=== PATIENT | male | born 1950 | race Caucasian/White ===

== ENCOUNTER 2016-04-08 07:27 | Day surgery (SDC) | payer OTHER ==
--- NOTE | 2016-03-26 12:54 | HP ---
Chief Complaint - Chief Complaint Date of Service: 03/26/16 Chief Complaint: here for colonoscopy History of Present Illness: 65 yo male who had a colon cancer found and resected in spring. Stage IIIA with one positve LN. No post op chemo. Here for follow up colonoscopy. Recently saw his oncologist. No signs or symptoms of recurrence. Oncologist's note reviewed. Labs OK including LFTs and CEA. No blood in stools or abdominal complaints. - Patient's Past Medical History Patient History - Medical: No pertinent hx, Other Patient History - Cardiac/Respiratory: No pertinent hx Patient History - Cancer: Colon - 2014 right hemicolectomy Patient History - Surgical Procedures: Cancer Surgery - right hemicolectomy 2014, Colonoscopy, Vasectomy Patient History - Other: None - Family History Family History:: no untoward family reactions to anesthesia, no familial bleeding tendencies, no family history of clotting disorders - Family History Mother Family History - Medical: - 2014 Family History - Cardiac/Respiratory: Other - after multiple problems after hip fracture Family History - Cancer: Colon - probable Father Family History - Cardiac/Respiratory: CVA/Stroke Family History - Cancer: Prostate - Social History Living Situations: spouse Abuse History: No History of abuse Psych History: No pertinent hx Does anyone smoke in the home?: No Alcohol Use: none Drug Use: none - Immunizations Immunizations Up to Date: No - unknown tetanus Hx Pneumococcal Vaccination: No History of Influenza Vaccine: No Review Of Systems (GEN) - Review of Systems Generalized/Overall Review: Present: Malaise. Absent: Fatigue, Weight loss EENTM: Present: No Symptoms Reported Respiratory: Absent: Shortness of Breath, Wheezing Cardiac: Absent: Chest Pain, Edema, Palpitations Abdominal: Absent: Vomiting, Hematemesis, Abdominal Pain, Bright blood from rectum Genitourinary: Present: No Symptoms Reported Musculoskeletal: Present: No Symptoms Reported Neurological: Present: No Symptoms Reported Skin: Present: No Symptoms Reported Endocrine: Present: No Symptoms Reported Allergies/Adverse Reactions: Allergies Allergy/AdvReac Type Severity Reaction Status Date / Time peanut AdvReac Mild Headache Verified 02/06/15 07:48 Home Medications: HOME MEDICATIONS Aspirin [Aspirin Enteric Coated] 162 mg PO DAILY 03/27/14 [Last Taken Unknown] Multivitamin [Multi-Vitamin Daily] 1 each PO DAILY 03/27/14 [Last Taken Unknown] Exam - Exam Vital Signs: Vital Signs - Last Taken Ht 178cm Wt 100kg HR 78 BP 130/75 Constitutional: Present: Alert, Oriented x3, Cooperative, Well developed, Well nourished, No distress, Overweight ENT Exam: Present: normal ENT inspection, hearing grossly normal, pharynx normal Eye Exam: bilateral eye: normal inspection Neck: Present: non-tender, full range of motion. Absent: lymphadenopathy (R), lymphadenopathy (L) Breasts: Present: Exam deferred Respiratory: Present: chest non-tender, lungs clear, normal breath sounds, no respiratory distress, no accessory muscle use Cardiovascular/Chest: Present: regular rate, rhythm, no chest tenderness, no edema, no JVD, no murmur Abdomen: Present: Normal bowel sounds, soft, nontender, nondistended, no hepatospenomegaly, no masses /Rectal: Present: Exam deferred Extremity: Present: normal range of motion, non-tender, normal inspection, no pedal edema, pelvis stable Skin Exam: Present: normal color, warm/dry, no cyanosis Lymphatic: Present: no adenopathy Neurologic: Present: no motor/sensory deficits, alert, normal mood/affect, oriented x 3 Appearance: Present: appropriate appearance, appropriate insight, neat, no memory impairment, denies illness Eye contact: Present: cooperative, good eye contact, normal speech Thoughts: Present: normal thought pattern, no apparent hallucination, normal mood /affect Assessment/Plan - Narrative Narrative: [facility] discussed for a surveillence colonoscopy. His last one was about 9 months post op (Jan 2015) and he needs a follow up. Discussed Suprep. Will schedule for later this month at his convenience. - Assessment/Plan (1) Colon cancer Problem: Chronic Qualifiers: Colon location: ascending Qualified Code(s): C18.2 - Malignant neoplasm of ascending colon (2) Encounter for follow-up surveillance of colon cancer Problem: Acute
[~2016-04-08 07:27] MED LIST: RINGERS SOLUTION,LACTATED 1,000 ML IV PRN
--- OUTSIDE RECORDS SUMMARY | 2016-04-08 07:32 | XMS REPORT | Continuity of Care Document ---
:1950 Author Organization [facility] ([facility]) [place] [address] Phone [phone] Care Team Providers Name Role Phone [phone], Self Referral Primary Care Provider [phone] Source Comments This disclosure is being made pursuant to the Care Everywhere program, applicable federal and state laws, and may not contain all informaitonavailable regarding this patient.[facility] ([facility]) Active Allergies and Adverse Reactions No Known Allergies Current Medications Prescription Sig. Disp. Refills Start Date End Date Status aspirin 81 mg EC tablet Take 81 mg by Active mouth daily. METRONIDAZOLE 0.75 % cream 11 09/04/2014 Active multivitamin tablet Take 1 tablet by Active mouth daily. Active Problems Problem Noted Date Colon cancer 12/25/2014 Most Recent Encounters Date Type Specialty Providers Description 03/17/2016 Hospital Encounter Hematology and Alex Harden Chief Comp: Patient Oncology O, Reported Reason For Visit Social History Tobacco Use Types Packs/Day Years Used Date Never Smoker Smokeless Tobacco: Never Used Last Filed Vital Signs Vital Sign Reading Time Taken Blood Pressure 130/72 03/17/2016 1:00 PM [facility] Pulse 76 03/17/2016 1:00 PM [facility] Temperature 37 C (98.6 F) 03/17/2016 1:00 PM [facility] Respiratory Rate 20 03/17/2016 1:00 PM [facility] Height 1.778 m (5' 10") 04/17/2014 3:26 PM CDT Weight 98.431 kg (217 lb) 03/17/2016 1:00 PM [facility] Body Mass Index 31.14 03/17/2016 1:00 PM [facility] Oxygen Saturation 96% 06/18/2015 1:05 PM CDT Plan of Care Health Maintenance Due Date Last Done Comments HCV Screening 1950 Hepatitis B Vaccine (1 of 3 - Primary Series) 1950 Tdap Vaccine 1961 Lipid Disorder Screening 1968 Td Vaccine 1968 Colonoscopy 10/20/2000 Prostate Cancer Screening 2000 Zoster Vaccine 2010 Influenza Vaccine: Seasonal (#1) 09/10/2015 Pneumococcal Vaccine (1 of 2 - PCV13) 10/22/2015 Results from Last 3 Months Not on file
[2016-04-08] MEDS ORDERED: RINGERS SOLUTION,LACTATED 1,000 ML IV ONE (08:00)
[2016-04-08] MEDS ORDERED: RINGERS SOLUTION,LACTATED 1,000 ML IV PRN (09:17)
--- NOTE | 2016-04-08 09:28 | OR ---
Operative Report - Dictated Report Narrative: DATE OF PROCEDURE: 04/08/2016 PREOPERATIVE DIAGNOSIS: #1 surveillance colonoscopy for colon cancer status post right hemicolectomy POSTOPERATIVE DIAGNOSIS: #1 same OPERATION: Colonoscopy SURGEON: Nahum Mcmanus M.D., FACS ANESTHESIA :[place] [employer] sedation INDICATIONS: This is 65 year old male who presents for a colonoscopy in follow -up of his colon cancer resection. I have discussed the risks, benefits, indications, and contraindications for colonoscopy with the possibility of biopsy and/or polypectomy. He understands, agrees, and wishes to proceed. He has undergone a SUPREP and has tolerated it well. PROCEDURE: The patient was brought to the operating theater and placed into the left lateral decubitus position. The patient underwent sedation per anesthesia , and a digital rectal exam was performed. This was noted to be unremarkable. The patient was noted to have no internal or external hemorrhoids. The Olympus video colonoscope was introduced and advanced into the rectum. The rectum was normal in appearance. The scope was then advanced through the sigmoid, where no diverticular disease was noted. The scope was then advanced to the anastomosis using standard reduction techniques. The prep appeared to be excellent with a [place] prep score of 9. The large and small intestine all appeared to be normal, the anastomosis was without signs of recurrence. The scope was withdrawn slowly as the ascending, transverse, descending, and sigmoid colon were examined in a circumferential fashion. The scope was brought back into the rectum where it was retroflexed in the lower rectum was examined. The air was decompressed, and the scope was then removed. Withdrawal time was 10 minutes. POSTOPERATIVE CONDITION: The patient was awakened and taken to the ambulatory surgery center in good condition. No complications were encountered. FINDINGS: No signs recurrent cancer, normal-appearing anastomosis, good prep. Specimens: None EBL: 0 The findings were discussed with the patient and his . I recommend a follow -up colonoscopy in one to 2 years for screening purposes and we will discuss with his oncologist the surveillance routine needed.
[2016-04-08 10:32] VITALS: BP 131/78
== END 2016-04-08 07:28 | disposition home or self-care (01) ==
LOC: AMB 07:27
PROVIDERS: ATTEND Surgery
PROC: 0DJD8ZZ Inspection of Lower Intestinal Tract, Via Natural or Artificial Opening Endoscopic (ICD-10-PCS; principal; 2016-04-08 08:50)
DX: Z08 Encounter for follow-up examination after completed treatment for malignant neoplasm (principal); Z85.038 Personal history of other malignant neoplasm of large intestine